=== PATIENT | male | born 1935 | race Caucasian/White ===

== ENCOUNTER 2017-07-24 14:09 | Inpatient (IN) | payer MEDICAID, MEDICARE ==
[2017-07-24] MEDS ORDERED: Docusate Sodium 100 MG Cap PO PRN (16:50)
[2017-07-24] MEDS ORDERED: traMADol 50 MG Tab PO PRN (16:50)
--- NOTE | 2017-07-24 17:04 | PCM.HP ---
H&P History of Present Illness - General Date of Service: 07/24/17 Admit Problem/Dx: Admission Diagnosis/Problem Admission Diagnosis/Problem Acute renal failure Source of Information: Patient History Limitations: Reports: No Limitations - History of Present Illness Initial Comments - Free Text/Narative: This is an 81yo M seen in clinic for concerns of dizziness, lightheadedness and feeling of fatigue. He denies any shortness of breath out of the ordinary and no chest pain. He appeared pale and labs show anemia and acute renal dysfunction. Onset of Symptoms: Reports: Unknown/Unsure Duration of Symptoms: Reports: Week(s):, Getting Worse Location: Reports: Generalized Severity: Moderate Middle Neck Pain Score (Numeric/FACES): 8 - Related Data Allergies/Adverse Reactions: Allergies Allergy/AdvReac Type Severity Reaction Status Date / Time No Known Allergies Allergy Verified 07/24/17 16:29 Home Medications: Home Meds Docusate Sodium [Colace] 100 mg PO BID #30 cap 10/18/13 [Rx] Apixaban [Eliquis] 2.5 mg PO BID 07/24/17 [History] Aspirin [Adult Low Dose Aspirin EC] 81 mg PO DAILY 07/24/17 [History] Carvedilol [Coreg] 6.25 mg PO BID 07/24/17 [History] Ferrous Sulfate 325 mg PO TIDMEALS 07/24/17 [History] Fludrocortisone [Fludrocortisone Acetate] 0.1 mg PO DAILY 07/24/17 [History] Lisinopril 5 mg PO DAILY 07/24/17 [History] Meclizine [Antivert] 25 mg PO TID 07/24/17 [History] Metolazone 5 mg PO DAILY 07/24/17 [History] Tamsulosin [Flomax] 0.8 mg PO BEDTIME 07/24/17 [History] atorvaSTATin [Lipitor] 80 mg PO BEDTIME 07/24/17 [History] traMADol HCl [Tramadol HCl] 50 mg PO TID PRN 07/24/17 [History] Social & Family History - Tobacco Use Years of Tobacco use: 16 Used Tobacco, but Quit: Yes Month/Year Tobacco Last Used: unknown Second Hand Smoke Exposure: Yes - Alcohol Use Days Per Week of Alcohol Use: 0 - Recreational Drug Use Recreational Drug Use: No H&P Review of Systems - Review of Systems: Review Of Systems: ROS reveals no pertinent complaints other than HPI. Exam - Exam Exam: See Below - Vital Signs Vital Signs: Last Vital Signs Temp 37.2 C 07/24/17 16:15 Pulse 70 07/24/17 16:15 Resp 18 07/24/17 16:15 BP 103/67 07/24/17 16:15 Pulse Ox 97 07/24/17 16:15 Weight: 85.445 kg - Exam General: Alert, Oriented, Cooperative HEENT: PERRLA, Conjunctiva Clear, EACs Clear, EOMI Neck: Supple, Trachea Midline Lungs: Clear to Auscultation, Normal Respiratory Effort Cardiovascular: Regular Rate, Systolic Murmur GI/Abdominal Exam: Normal Bowel Sounds Extremities: Normal Inspection Skin: Dry, Intact, Other (pale) Neuro Extensive - Motor, Sensory, Reflexes: CN II-XII Intact, Normal Gait Psychiatric: Alert, Normal Affect, Normal Mood - Patient Data Lab Results Last 24 hrs: Laboratory Results - last 24 hr 07/24/17 07/24/17 Range/Units 14:19 14:19 WBC 2.6 L D (4.0-11.0) K/uL RBC 2.14 L (4.50-6.50) M/uL Hgb 7.5 L D (13.0-18.0) g/dL Hct 22.5 L D (40.0-54.0) % MCV 105 H (76-96) fL MCH 35.0 H (27.0-32.0) pg MCHC 33.3 (31.0-35.0) g/dL RDW 13.8 (11.0-16.0) % Plt Count 192 D (150-400) K/uL MPV 10.0 (6.0-10.0) fL Neut % (Auto) 60.0 (45.0-70.0) % Lymph % (Auto) 29.0 (20.0-40.0) % [place] % (Auto) 9.8 (3.0-10.0) % Eos % (Auto) 0.8 L (1.0-5.0) % Baso % (Auto) 0.4 (0.0-0.5) % Neut # (Auto) 1.53 L (2.00-7.50) K/uL Lymph # (Auto) 0.74 L (1.50-4.00) K/uL [place] # (Auto) 0.25 (0.20-0.80) K/uL Eos # (Auto) 0.02 L (0.04-0.40) K/uL Baso # (Auto) 0.01 L (0.02-0.10) K/uL Sodium 140 (136-145) mmol/L Potassium 3.8 (3.5-5.1) mmol/L Chloride 96 L (98-107) mmol/L Carbon Dioxide 33.6 H (21.0-32.0) mmol/L Anion Gap 14.2 (5.0-15.0) mmol/L BUN 103 H* D (8-26) mg/dL Creatinine 3.04 H* D (0.70-1.30) mg/dL Est Cr Clr Drug Dosing TNP Estimated GFR (MDRD) 20 L (>60) MLS/MIN BUN/Creatinine Ratio 33.9 H (6-25) Glucose 135 H (74-100) mg/dL Calcium 9.0 (8.5-10.1) mg/dL PSA Screen 47.48 H D (0.00-4.00) ng/mL Result Diagrams: 07/24/17 14:19 07/24/17 14:19 - Problem List (1) Acute renal failure SNOMED Code(s): 31411146 ICD Code: N17.9 - ACUTE KIDNEY FAILURE, UNSPECIFIED Status: Acute Priority: High Current Visit: Yes (2) Anemia SNOMED Code(s): 784774961 ICD Code: D64.9 - ANEMIA, UNSPECIFIED Status: Acute Priority: High Current Visit: Yes Qualifiers: Anemia type: unspecified type Qualified Code(s): D64.9 - Anemia, unspecified (3) Dizziness SNOMED Code(s): 122766803, 279934371 ICD Code: R42 - DIZZINESS AND GIDDINESS Status: Acute Priority: High Current Visit: Yes Problem List Initiated/Reviewed/Updated: Yes Orders Last 24hrs: Active Orders 24 hr Category Date Time Status Patient Status [ADT] Routine ADT 07/24/17 16:22 Ordered Oxygen Therapy [RC] PRN Care 07/24/17 16:22 Ordered Up With Assistance [RC] ASDIRECTED Care 07/24/17 16:22 Ordered Vital Signs [RC] Q4H Care 07/24/17 16:22 Ordered 2 Gram Sodium Diet [DIET] Diet 07/24/17 Dinner Ordered CULTURE MRSA SURVEY [RM] Routine Lab 07/24/17 16:48 Ordered RED BLOOD CELLS LP [BBK] Routine Lab 07/24/17 16:24 Ordered TYPE AND SCREEN [BBK] Routine Lab 07/24/17 16:24 Ordered Apixaban [Eliquis] Med 07/24/17 20:00 Ordered 2.5 mg PO BID Aspirin [Halfprin] Med 07/25/17 08:00 Ordered 81 mg PO DAILY Carvedilol [Coreg] Med 07/24/17 20:00 Ordered 6.25 mg PO BID Docusate Sodium [Colace] Med 07/24/17 16:50 Ordered 100 mg PO BID PRN Ferrous Sulfate Med 07/24/17 18:00 Ordered 325 mg PO TIDMEALS Fludrocortisone [Florinef] Med 07/25/17 08:00 Ordered 0.1 mg PO DAILY Lisinopril [Prinivil] Med 07/25/17 08:00 Ordered 5 mg PO DAILY Meclizine [Antivert] Med 07/24/17 20:00 Ordered 25 mg PO TID atorvaSTATin [Lipitor] Med 07/24/17 20:00 Ordered 80 mg PO BEDTIME traMADol [Ultram] Med 07/24/17 16:50 Ordered 50 mg PO TID PRN Resuscitation Status Routine Resus Stat 07/24/17 16:22 Ordered Assessment/Plan Comment:: Patient will be admitted for a blood transfusion for acute symptomatic anemia and f/u labs for acute renal failure in AM. Patient will remain up with assistance.
[2017-07-24] MEDS ORDERED: Acetaminophen 500 MG Tab ONE (17:48)
[2017-07-24] MEDS ORDERED: Acetaminophen 500 MG Tab PO ONE (17:49)
[2017-07-24] MEDS: Ferrous Sulfate 325 MG Tab PO SCH (17:56)
[2017-07-24] MEDS: atorvaSTATin 80 MG Tab PO SCH (20:08)
[2017-07-24] MEDS: Carvedilol 6.25 MG Tab PO SCH (20:08)
[2017-07-24] MEDS: Apixaban 2.5 MG Tab PO SCH (21:52)
[2017-07-25] MEDS: Sodium Chloride 0.9% 10 ML Syringe FLUSH SCH ×3 (00:07→20:45)
[2017-07-25] MEDS ORDERED: Fludrocortisone 0.1 MG Tab PO SCH (08:00)
[2017-07-25] MEDS: Ferrous Sulfate 325 MG Tab PO SCH ×3 (08:17→17:21)
[2017-07-25] MEDS: Carvedilol 6.25 MG Tab PO SCH ×2 (08:18→20:37)
[2017-07-25] MEDS: Aspirin 81 MG Tab.EC PO SCH (08:18)
[2017-07-25] MEDS: Lisinopril 5 MG Tab PO SCH (08:18)
[2017-07-25] MEDS: Apixaban 2.5 MG Tab PO SCH ×2 (08:18→20:44)
--- NOTE | 2017-07-25 08:40 | PCM.PN ---
- General Info Date of Service: 07/25/17 Subjective Update: This is a 81yo M who is feeling much better today. He states his dizziness is much improved and he can use his walker without feeling dizzy. He has some dizziness if he gets up too quickly or moves his head up and down quickly. He denies any concerns. - Review of Systems General: Reports: No Symptoms HEENT: Reports: No Symptoms Pulmonary: Reports: No Symptoms Cardiovascular: Reports: No Symptoms Musculoskeletal: Reports: No Symptoms Neurological: Reports: Dizziness Psychiatric: Reports: No Symptoms - Patient Data Vitals - Most Recent: Last Vital Signs Temp 36.1 C 07/25/17 03:34 Pulse 71 07/25/17 08:18 Resp 15 07/25/17 03:34 BP 110/77 07/25/17 08:18 Pulse Ox 97 07/25/17 03:34 Weight - Most Recent: 85.445 kg I&O - Last 24 Hours: Intake & Output 07/24/17 07/25/17 07/25/17 22:59 06:59 14:59 Intake Total 690 435 Output Total 690 1420 Balance 0 -985 Lab Results Last 24 Hours: Laboratory Results - last 24 hr 07/24/17 07/24/17 07/24/17 Range/Units 14:00 14:19 14:19 WBC 2.6 L D (4.0-11.0) K/uL RBC 2.14 L (4.50-6.50) M/uL Hgb 7.5 L D (13.0-18.0) g/dL Hct 22.5 L D (40.0-54.0) % MCV 105 H (76-96) fL MCH 35.0 H (27.0-32.0) pg MCHC 33.3 (31.0-35.0) g/dL RDW 13.8 (11.0-16.0) % Plt Count 192 D (150-400) K/uL MPV 10.0 (6.0-10.0) fL Neut % (Auto) 60.0 (45.0-70.0) % Lymph % (Auto) 29.0 (20.0-40.0) % [place] % (Auto) 9.8 (3.0-10.0) % Eos % (Auto) 0.8 L (1.0-5.0) % Baso % (Auto) 0.4 (0.0-0.5) % Neut # (Auto) 1.53 L (2.00-7.50) K/uL Lymph # (Auto) 0.74 L (1.50-4.00) K/uL [place] # (Auto) 0.25 (0.20-0.80) K/uL Eos # (Auto) 0.02 L (0.04-0.40) K/uL Baso # (Auto) 0.01 L (0.02-0.10) K/uL PT (9.0-11.5) sec INR (1.0-3.5) Sodium 140 (136-145) mmol/L Potassium 3.8 (3.5-5.1) mmol/L Chloride 96 L (98-107) mmol/L Carbon Dioxide 33.6 H (21.0-32.0) mmol/L Anion Gap 14.2 (5.0-15.0) mmol/L BUN 103 H* D (8-26) mg/dL Creatinine 3.04 H* D (0.70-1.30) mg/dL Est Cr Clr Drug Dosing TNP Estimated GFR (MDRD) 20 L (>60) MLS/MIN BUN/Creatinine Ratio 33.9 H (6-25) Glucose 135 H (74-100) mg/dL Calcium 9.0 (8.5-10.1) mg/dL Total Bilirubin (0.0-1.0) mg/dL AST (15-37) U/L ALT (12-78) U/L Alkaline Phosphatase (46-116) U/L Total Protein (6.4-8.2) g/dL Albumin (3.4-5.0) g/dL Globulin (2.2-4.2) g/dL Albumin/Globulin Ratio (0.8-2.0) PSA Screen 47.48 H D (0.00-4.00) ng/mL Blood Type A POSITIVE Gel Antibody Screen Negative Crossmatch See Detail 07/25/17 07/25/17 07/25/17 Range/Units 07:10 07:10 07:10 WBC 2.7 L (4.0-11.0) K/uL RBC 3.06 L (4.50-6.50) M/uL Hgb 10.3 L D (13.0-18.0) g/dL Hct 30.3 L D (40.0-54.0) % MCV 99 H (76-96) fL MCH 33.7 H (27.0-32.0) pg MCHC 34.0 (31.0-35.0) g/dL RDW 16.2 H (11.0-16.0) % Plt Count 206 (150-400) K/uL MPV 9.8 (6.0-10.0) fL Neut % (Auto) 60.3 (45.0-70.0) % Lymph % (Auto) 27.9 (20.0-40.0) % [place] % (Auto) 9.2 (3.0-10.0) % Eos % (Auto) 2.2 (1.0-5.0) % Baso % (Auto) 0.4 (0.0-0.5) % Neut # (Auto) 1.64 L (2.00-7.50) K/uL Lymph # (Auto) 0.76 L (1.50-4.00) K/uL [place] # (Auto) 0.25 (0.20-0.80) K/uL Eos # (Auto) 0.06 (0.04-0.40) K/uL Baso # (Auto) 0.01 L (0.02-0.10) K/uL PT 11.9 H (9.0-11.5) sec INR 1.2 (1.0-3.5) Sodium 142 (136-145) mmol/L Potassium 3.9 (3.5-5.1) mmol/L Chloride 98 (98-107) mmol/L Carbon Dioxide 35.2 H (21.0-32.0) mmol/L Anion Gap 12.7 (5.0-15.0) mmol/L BUN 89 H* (8-26) mg/dL Creatinine 2.08 H D (0.70-1.30) mg/dL Est Cr Clr Drug Dosing 25.16 Estimated GFR (MDRD) 31 L (>60) MLS/MIN BUN/Creatinine Ratio 42.8 H (6-25) Glucose 115 H (74-100) mg/dL Calcium 9.4 (8.5-10.1) mg/dL Total Bilirubin 1.2 H (0.0-1.0) mg/dL AST 23 (15-37) U/L ALT 18 (12-78) U/L Alkaline Phosphatase 59 (46-116) U/L Total Protein 8.2 (6.4-8.2) g/dL Albumin 3.4 (3.4-5.0) g/dL Globulin 4.8 H (2.2-4.2) g/dL Albumin/Globulin Ratio 0.7 L (0.8-2.0) PSA Screen (0.00-4.00) ng/mL Blood Type Gel Antibody Screen Crossmatch Med Orders - Current: Current Medications Apixaban (Eliquis) 2.5 mg PO BID [facility] Last Admin: 07/25/17 08:18 Dose: 2.5 mg Aspirin (Halfprin) 81 mg PO DAILY [facility] Last Admin: 07/25/17 08:18 Dose: 81 mg Atorvastatin Calcium (Lipitor) 80 mg PO BEDTIME [facility] Last Admin: 07/24/17 20:08 Dose: 80 mg Carvedilol (Coreg) 6.25 mg PO BID [facility] Last Admin: 07/25/17 08:18 Dose: 6.25 mg Docusate Sodium (Colace) 100 mg PO BID PRN PRN Reason: Constipation Ferrous Sulfate (Ferrous Sulfate) 325 mg PO TIDMEALS [facility] Last Admin: 07/25/17 08:17 Dose: 325 mg Fludrocortisone Acetate (Florinef) 0.1 mg PO DAILY [facility] Sodium Chloride (Normal Saline) 1,000 mls @ 75 mls/hr IV ASDIRECTED [facility] Stop: 07/25/17 22:04 Lisinopril (Prinivil) 5 mg PO DAILY [facility] Last Admin: 07/25/17 08:18 Dose: 5 mg Meclizine HCl (Antivert) 25 mg PO TID [facility] Last Admin: 07/25/17 08:18 Dose: 25 mg Sodium Chloride (Saline Flush) 10 ml FLUSH BID [facility] Last Admin: 07/25/17 08:20 Dose: 10 ml Tramadol HCl (Ultram) 50 mg PO TID PRN PRN Reason: Pain Discontinued Medications Acetaminophen (Tylenol Extra Strength) Confirm Administered Dose 500 mg .ROUTE .STK-MED ONE Stop: 07/24/17 17:49 Last Admin: 07/24/17 18:44 Dose: Not Given Acetaminophen (Tylenol Extra Strength) 500 mg PO ONETIME ONE Stop: 07/24/17 17:50 Last Admin: 07/24/17 17:55 Dose: 500 mg - Exam General: Alert, Oriented, Cooperative HEENT: Pupils Equal, Pupils Reactive, EOMI Lungs: Clear to Auscultation, Normal Respiratory Effort Cardiovascular: Regular Rate, Regular Rhythm GI/Abdominal Exam: Normal Bowel Sounds Extremities: Normal Inspection, No Pedal Edema Peripheral Pulses: 2+: Dorsalis Pedis (L), Dorsalis Pedis (R) Skin: Warm, Dry, Intact - Problem List & Annotations (1) Acute renal failure SNOMED Code(s): 89973888 Code(s): N17.9 - ACUTE KIDNEY FAILURE, UNSPECIFIED Status: Acute Priority : High Current Visit: Yes (2) Anemia SNOMED Code(s): 000360055 Code(s): D64.9 - ANEMIA, UNSPECIFIED Status: Acute Priority: High Current Visit: Yes Qualifiers: Anemia type: unspecified type Qualified Code(s): D64.9 - Anemia, unspecified (3) Dizziness SNOMED Code(s): 650141769, 997247010 Code(s): R42 - DIZZINESS AND GIDDINESS Status: Acute Priority: High Current Visit: Yes - Problem List Review Problem List Initiated/Reviewed/Updated: Yes - My Orders Last 24 Hours: My Active Orders 07/24/17 14:30 FERRITIN [REF] Routine FOLATE [REF] Routine IRON AND IRON BINDING CAPACITY [REF] Routine VITAMIN B12 [REF] Routine 07/24/17 16:22 Patient Status [ADT] Routine Oxygen Therapy [RC] PRN Up With Assistance [RC] ASDIRECTED Vital Signs [RC] Q4H Resuscitation Status Routine 07/24/17 16:48 CULTURE MRSA SURVEY [RM] Routine 07/24/17 16:50 Docusate Sodium [Colace] 100 mg PO BID PRN traMADol [Ultram] 50 mg PO TID PRN 07/24/17 18:00 Ferrous Sulfate 325 mg PO TIDMEALS 07/24/17 20:00 Apixaban [Eliquis] 2.5 mg PO BID Carvedilol [Coreg] 6.25 mg PO BID Meclizine [Antivert] 25 mg PO TID atorvaSTATin [Lipitor] 80 mg PO BEDTIME 07/24/17 23:45 Sodium Chloride 0.9% [Saline Flush] 10 ml FLUSH BID 07/24/17 Dinner 2 Gram Sodium Diet [DIET] 07/25/17 08:00 Aspirin [Halfprin] 81 mg PO DAILY Fludrocortisone [Florinef] 0.1 mg PO DAILY Lisinopril [Prinivil] 5 mg PO DAILY 07/25/17 08:45 Sodium Chloride 0.9% [Normal Saline] 1,000 ml IV ASDIRECTED 07/26/17 05:11 CBC WITH AUTO DIFF [HEME] AM COMPREHENSIVE METABOLIC PN,CMP [CHEM] AM - Plan Plan:: Patient will be admitted for a blood transfusion for acute symptomatic anemia and f/u labs for acute renal failure in AM. Patient will remain up with assistance. 07/25/17 Patient will be maintained on NS 0/9% at 75mL/hr up to 1 L. We will recheck his renal function and labs in the AM and consider discharge planning tomorrow.
[2017-07-25] MEDS ORDERED: Sodium Chloride 0.9% 1,000 ML IV SCH (08:45)
[2017-07-25] MEDS: atorvaSTATin 80 MG Tab PO SCH (20:37)
[2017-07-26] MEDS: Apixaban 2.5 MG Tab PO SCH (07:31)
[2017-07-26] MEDS: Ferrous Sulfate 325 MG Tab PO SCH (07:31)
[2017-07-26] MEDS: Aspirin 81 MG Tab.EC PO SCH (07:32)
[2017-07-26] MEDS: Carvedilol 6.25 MG Tab PO SCH (07:33)
[2017-07-26] MEDS: Lisinopril 5 MG Tab PO SCH (07:33)
[2017-07-26] MEDS: Sodium Chloride 0.9% 10 ML Syringe FLUSH SCH (07:34)
--- NOTE | 2017-07-26 09:23 | PCM.DCSUM1 ---
Discharge Summary - Discharge Data Discharge Date: 07/26/17 Discharge Disposition: Home, Self-Care 01 Condition: Good - Discharge Diagnosis/Problem(s) (1) Acute renal failure SNOMED Code(s): 27393365 ICD Code: N17.9 - ACUTE KIDNEY FAILURE, UNSPECIFIED Status: Acute Priority: High Current Visit: Yes (2) Anemia SNOMED Code(s): 971825542 ICD Code: D64.9 - ANEMIA, UNSPECIFIED Status: Acute Priority: High Current Visit: Yes Qualifiers: Anemia type: unspecified type Qualified Code(s): D64.9 - Anemia, unspecified (3) Dizziness SNOMED Code(s): 276427815, 016890736 ICD Code: R42 - DIZZINESS AND GIDDINESS Status: Acute Priority: High Current Visit: Yes - Patient Instructions Diet: Usual Diet as Tolerated - Discharge Plan Prescriptions/Med Rec: Azithromycin [IJD: Azithromycin] 250 mg PO ASDIRECTED #6 tab Home Medications: Home Meds Docusate Sodium [Colace] 100 mg PO BID #30 cap 10/18/13 [Rx] Apixaban [Eliquis] 2.5 mg PO BID 07/24/17 [History] Aspirin [Adult Low Dose Aspirin EC] 81 mg PO DAILY 07/24/17 [History] Carvedilol [Coreg] 6.25 mg PO BID 07/24/17 [History] Ferrous Sulfate 325 mg PO TIDMEALS 07/24/17 [History] Fludrocortisone [Florinef] 0.1 mg PO DAILY 07/24/17 [History] Lisinopril 5 mg PO DAILY 07/24/17 [History] Meclizine [Antivert] 25 mg PO TID 07/24/17 [History] Tamsulosin [Flomax] 0.8 mg PO BEDTIME 07/24/17 [History] atorvaSTATin [Lipitor] 80 mg PO BEDTIME 07/24/17 [History] traMADol HCl [Tramadol HCl] 50 mg PO TID PRN 07/24/17 [History] Azithromycin [IJD: Azithromycin] 250 mg PO ASDIRECTED #6 tab 07/26/17 [Rx] Patient Handouts: Acute Kidney Injury, Adult, Anemia - Discharge Summary/Plan Comment DC Time >30 min.: No Discharge Summary/Plan Comment: Counseled on holding lasix and metolazone. F/u repeat labs in 1.5 wks. Chest congestion - started on z-ezra and f/u as directed with close monitoring and conservative care. - Patient Data Vitals - Most Recent: Last Vital Signs Temp 36.7 C 07/26/17 07:15 Pulse 77 07/26/17 07:33 Resp 18 07/26/17 07:33 BP 117/73 07/26/17 07:33 Pulse Ox 99 07/26/17 07:15 Weight - Most Recent: 81.306 kg I&O - Last 24 hours: Intake & Output 07/25/17 07/26/17 07/26/17 22:59 06:59 14:59 Intake Total 1764 1300 Output Total 1550 1900 Balance 214 -600 Lab Results - Last 24 hrs: Laboratory Results - last 24 hr 07/26/17 07/26/17 Range/Units 07:10 08:15 WBC 3.1 L (4.0-11.0) K/uL RBC 3.07 L (4.50-6.50) M/uL Hgb 10.4 L (13.0-18.0) g/dL Hct 31.1 L (40.0-54.0) % MCV 101 H (76-96) fL MCH 33.9 H (27.0-32.0) pg MCHC 33.4 (31.0-35.0) g/dL RDW 16.1 H (11.0-16.0) % Plt Count 187 (150-400) K/uL MPV 10.3 H (6.0-10.0) fL Neut % (Auto) 59.4 (45.0-70.0) % Lymph % (Auto) 29.7 (20.0-40.0) % [place] % (Auto) 8.0 (3.0-10.0) % Eos % (Auto) 2.6 (1.0-5.0) % Baso % (Auto) 0.3 (0.0-0.5) % Neut # (Auto) 1.86 L (2.00-7.50) K/uL Lymph # (Auto) 0.93 L (1.50-4.00) K/uL [place] # (Auto) 0.25 (0.20-0.80) K/uL Eos # (Auto) 0.08 (0.04-0.40) K/uL Baso # (Auto) 0.01 L (0.02-0.10) K/uL Sodium 142 (136-145) mmol/L Potassium 3.7 (3.5-5.1) mmol/L Chloride 100 (98-107) mmol/L Carbon Dioxide 32.5 H (21.0-32.0) mmol/L Anion Gap 13.2 (5.0-15.0) mmol/L BUN 67 H* D (8-26) mg/dL Creatinine 1.60 H D (0.70-1.30) mg/dL Est Cr Clr Drug Dosing 32.71 mL/min Estimated GFR (MDRD) 41 L (>60) MLS/MIN BUN/Creatinine Ratio 41.9 H (6-25) Glucose 119 H (74-100) mg/dL Calcium 9.0 (8.5-10.1) mg/dL Total Bilirubin 0.7 D (0.0-1.0) mg/dL AST 23 (15-37) U/L ALT 19 (12-78) U/L Alkaline Phosphatase 60 (46-116) U/L Total Protein 8.4 H (6.4-8.2) g/dL Albumin 3.4 (3.4-5.0) g/dL Globulin 5.0 H (2.2-4.2) g/dL Albumin/Globulin Ratio 0.7 L (0.8-2.0) STEVIE Results - Last 24 hrs: Microbiology 07/24/17 16:48 MRSA Surveillance Culture - Final Nares, Unspecified NO MRSA ISOLATED Med Orders - Current: Current Medications Apixaban (Eliquis) 2.5 mg PO BID [facility] Last Admin: 07/26/17 07:31 Dose: 2.5 mg Aspirin (Halfprin) 81 mg PO DAILY [facility] Last Admin: 07/26/17 07:32 Dose: 81 mg Atorvastatin Calcium (Lipitor) 80 mg PO BEDTIME [facility] Last Admin: 07/25/17 20:37 Dose: 80 mg Carvedilol (Coreg) 6.25 mg PO BID [facility] Last Admin: 07/26/17 07:33 Dose: 6.25 mg Docusate Sodium (Colace) 100 mg PO BID PRN PRN Reason: Constipation Ferrous Sulfate (Ferrous Sulfate) 325 mg PO TIDMEALS [facility] Last Admin: 07/26/17 07:31 Dose: 325 mg Fludrocortisone Acetate (Florinef) 0.1 mg PO DAILY [facility] Lisinopril (Prinivil) 5 mg PO DAILY [facility] Last Admin: 07/26/17 07:33 Dose: 5 mg Meclizine HCl (Antivert) 25 mg PO TID [facility] Last Admin: 07/26/17 07:44 Dose: 25 mg Sodium Chloride (Saline Flush) 10 ml FLUSH BID [facility] Last Admin: 07/26/17 07:34 Dose: 10 ml Tramadol HCl (Ultram) 50 mg PO TID PRN PRN Reason: Pain Discontinued Medications Acetaminophen (Tylenol Extra Strength) Confirm Administered Dose 500 mg .ROUTE .STK-MED ONE Stop: 07/24/17 17:49 Last Admin: 07/24/17 18:44 Dose: Not Given Acetaminophen (Tylenol Extra Strength) 500 mg PO ONETIME ONE Stop: 07/24/17 17:50 Last Admin: 07/24/17 17:55 Dose: 500 mg Sodium Chloride (Normal Saline) 1,000 mls @ 75 mls/hr IV ASDIRECTED [facility] Stop: 07/25/17 22:04 Last Admin: 07/25/17 09:34 Dose: 75 mls/hr
[2017-07-26 11:30] VITALS: BP 95/65
[2017-07-26 19:02] LABS: UNSATURATED IRON BIND CAPACITY 221 ug/dL (112-347)
== END 2017-07-26 12:07 | disposition home or self-care (01) | DRG 684 ==
LOC: LB.CLINIC 14:09 → UNDOADMIN 16:04 → LB.MS 16:04
PROVIDERS: ADMIT Family Medicine; ATTEND Family Medicine
PROC: 30233N1 Transfusion of Nonautologous Red Blood Cells into Peripheral Vein, Percutaneous Approach (ICD-10-PCS; principal; 2017-07-24)
DX: N17.9 Acute kidney failure, unspecified (principal); D64.9 Anemia, unspecified; Z12.5 Encounter for screening for malignant neoplasm of prostate; R42 Dizziness and giddiness; Z79.82 Long term (current) use of aspirin; R53.83 Other fatigue
CPT/HCPCS: 36415; 36430; 80048; 80053; 82607; 82728; 82746; 83540; 83550; 85025; 85610; 86850; 86900; 86901; 86920; 86922; A9270-GY; G0103; J7040; J7050; P9016

== ENCOUNTER 2017-09-21 09:07 | Day surgery (SDC) | payer MEDICARE ==
[~2017-09-21 09:07] MED LIST: Metoclopramide 10 MG/2 ML SDV IV PRN; Sodium Chloride 0.9% 10 ML Syringe FLUSH PRN
[2017-09-21] MEDS: Sodium Chloride 0.9% 1,000 ML IV SCH (09:51)
[2017-09-21] MEDS ORDERED: Propofol 200 MG/20 ML SDV ONE (12:25)
[2017-09-21 17:58] VITALS: BP 143/91
--- NOTE | 2017-09-21 19:39 | OR ---
DATE OF OPERATION: 09/21/2017 PREOPERATIVE DIAGNOSIS: History of colon cancer. POSTOPERATIVE DIAGNOSIS: History of colon cancer. PROCEDURE: Colonoscopy with polypectomy. ANESTHESIA: MAC. ESTIMATED BLOOD LOSS: Minimal. COMPLICATIONS: None. INDICATION FOR THE PROCEDURE: The patient is an 81-year-old male who in 2012 had colon resection for colon cancer. The patient is here today for colonoscopy. DESCRIPTION OF PROCEDURE: Informed consent was obtained from the patient. The patient was taken to the operating room and placed on the table in the left lateral decubitus position. Monitored anesthesia care was administered. Digital rectal exam was normal. Colonoscope was then advanced through the anus directed toward the cecum. Cecum was identified by appendiceal orifice, ileocecal valve, and intubation of the terminal ileum. Terminal ileum was normal. Colonoscope was then slowly withdrawn. A small pedunculated polyp found at approximately 30 cm, which was removed completely with snare cautery polypectomy. Retroflexion then performed in the rectum was also unremarkable. Colonoscope was then withdrawn. FINDINGS: Sigmoid polyp. RECOMMENDATIONS: Would recommend repeat colonoscopy in approximately three years due to personal history of colon cancer and recent finding of polyp. JOSEPH/JAXSON /[id number]
== END 2017-09-21 14:22 | disposition home or self-care (01) ==
LOC: LB.SDS 09:07
PROVIDERS: ATTEND Surgery
DX: Z12.11 Encounter for screening for malignant neoplasm of colon (principal); D12.5 Benign neoplasm of sigmoid colon; I10 Essential (primary) hypertension; J45.909 Unspecified asthma, uncomplicated; Z90.49 Acquired absence of other specified parts of digestive tract; D53.9 Nutritional anemia, unspecified; Z85.038 Personal history of other malignant neoplasm of large intestine; Z86.010 Personal history of colon polyps; Z86.73 Personal history of transient ischemic attack (TIA), and cerebral infarction without residual deficits; Z79.01 Long term (current) use of anticoagulants; Z79.51 Long term (current) use of inhaled steroids; Z79.899 Other long term (current) drug therapy; Z95.0 Presence of cardiac pacemaker
CPT/HCPCS: 88305; J2704; J7030